=== PATIENT | female | born 1955 | race Caucasian/White ===

== ENCOUNTER 2017-03-01 14:00 | Inpatient (IN) | payer MEDICARE, OTHER ==
--- NOTE | ~2017-03-01 | PN ---
Unit #: [id number] #: [id number] Patient: CARIDAD RECINOS [id number] [facility] [address] [place] [address] [id number] MR#: [id number] NAME: CARIDAD RECINOS ROOM: P256 Age: 61 Sex: F Admission Date: 03/01/2017 : 1955 Attending Physician: Panchito Santacruz M.D. Admitting Physician: Panchito Santacruz M.D. Primary Care Physician: Maddie Dave PROGRESS NOTES DATE 03/03/2017 DISCUSSION Ms. Recinos is a 61-year-old white female who was seen today and chart was reviewed and case was discussed with the staff. She remains anxious, withdrawn, depressed and rather seclusive to herself. Meanwhile, she has been cooperative with treatment recommendations as she has been taking the medications and tolerating them fairly well with no reported side effects. MENTAL STATUS EXAMINATION Middle-aged white female who was casually dressed with fair personal hygiene, appears to be in no acute distress or discomfort. She was awake and alert on interaction with intact orientation. Her mood was anxious with congruent affect. She denies any suicidal or homicidal ideations. Her insight and judgement remains slightly impaired. TREATMENT PLAN 1. We will continue her on her current medications and treatment protocol. We will monitor her response to the medication and make further adjustments as needed. 2. We will continue to follow up. Dictated by... Maddie Herrera/darrell TD: 03/04/2017 02:49 JOB #: [id number] Unit #: [id number] #: [id number] Patient: CARIDAD RECINOS PROGRESS NOTES Page 1 of 1 X Panchito Santacruz MD X PROGRESS NOTE
--- NOTE | ~2017-03-01 | PA ---
Unit #: [id number] #: [id number] [facility] [id number] [facility] [address] [place] [address] [id number] I MR#: [id number] NAME: CARIDAD RECINOS ROOM: P256 Age: 61 Sex: F Admission Date: 03/01/2017 : 1955 Date of Assessment: 03/01/2017 Attending Physician: Panchito Santacruz M.D. Admitting Physician: Panchito Santacruz M.D. Primary Care Physician: Jennie Guy M.D. PSYCHIATRIC ASSESSMENT DATE OF SERVICE 03/01/2017. IDENTIFYING DATA Ms. Recinos is a 61-year-old , disabled, white female, who is known to me from previous multiple encounters and is a resident of [place], [place], and was self-referred to the hospital on a voluntary basis. CHIEF COMPLAINT "I'm off my medications and I'm suicidal." HISTORY OF PRESENT ILLNESS Ms. Recinos is a 61-year-old white female with history of mood disorder, who reports that she has been off her medication and has been decompensating and does report increasing depression, anxiety, feelings of hopelessness and helplessness, and suicidal ideation and reports that she has been in a lot of stress at home and that her daughter and her son-in-law along with their baby has moved in and the daughter is a drug addict and she has overdosed twice and has been on ventilator and that she has had some brain damage as well. She state "I don't want to be there anymore." The patient reports that she has been having thoughts of overdosing on pills and slitting her wrist or hanging herself "my head is not right, I know it is not." She reports increasing depression, anxiety, feelings of hopelessness and helplessness, and suicidal ideation and was seen to be danger to self and as such, recommendation for inpatient level of care for safety and stabilization was made. SUBSTANCE ABUSE HISTORY The patient has had history of [facility] and has been diagnosed and treated for bipolar disorder. Review of the medical records indicate currently she is on a combination of Effexor, lithium, and Seroquel, though has been out of her medications and as such, has been decompensating. PAST MEDICAL HISTORY The patient's medical history is significant for degenerative disk disease, COPD, spinal stenosis, history of hepatitis, dyslipidemia. ALLERGIES Codeine, Zofran, and Paxil. PERSONAL AND SOCIAL HISTORY Unit #: [id number] #: [id number] Patient: CARIDAD RECINOS A 61-year-old white female, who reports that she is single, disabled, and was living alone until her daughter and daughter's boyfriend and granddaughter moved in. MENTAL STATUS EXAMINATION Middle-aged white female, who was casually dressed with fair personal hygiene, appears to be in no acute distress or discomfort. She was awake and alert on interaction with intact orientation to time, place, and person. Her mood was anxious and depressed with a congruent affect. Her speech was slow and restricted in content. Her thought processes were disorganized with some looseness of associations and suicidal ideations. Her insight and judgment remain significantly impaired. DIAGNOSTIC IMPRESSION Psychiatric: Bipolar disorder, most recent episode depressed, recurrent, moderate, without psychotic features. Medical: Degenerative disk disease, chronic obstructive pulmonary disease, spinal stenosis, history of hepatitis C, dyslipidemia. Stressors: Moderate psychosocial stressors. TREATMENT PLAN 1. The patient has presented with history of mood disorder, and has been decompensating and will need inpatient hospitalization for safety and stabilization. We will start her back on her home medications. We will adjust the medications and monitor response. 2. Supportive therapy was provided to the patient. 3. Safe, structured, and nourishing environment will be provided. ESTIMATED LENGTH OF STAY 5 to 7 days. ABILITY TO HELP SELF Limited. WILLINGNESS TO HELP SELF The patient appears to be willing to help self. STRENGTHS 1. Communicative. 2. Cooperative. PROBLEMS 1. Chronic dysphoric symptoms. 2. Poor social support system. DISCHARGE CRITERIA This will be contingent upon the patient's ability to show resolution of her depression and anxiety and her ability to stay safe to herself, particularly after discharge from the hospital. Dictated by..Yun Santacruz M.D. RAMEZ/pratima TD: 03/02/2017 08:42 JOB #: [id number] Unit #: [id number] #: [id number] Patient: CARIDAD RECINOS PSYCHIATRIC ASSESSMENT Page 1 of 1 X Panchito Santacruz MD PSYCHIATRIC ASSESSMENT
--- NOTE | ~2017-03-01 | PN ---
Unit #: [id number] #: [id number] Patient: CARIDAD RECINOS [id number] [facility] [address] [place] [address] [id number] I MR#: [id number] NAME: CARIDAD RECINOS ROOM: P256 Age: 61 Sex: F Admission Date: 03/01/2017 : 1955 Attending Physician: Panchito Santacruz M.D. Admitting Physician: Panchito Santacruz M.D. Primary Care Physician: Maddie Dave PROGRESS NOTES DATE 03/03/2017 DISCUSSION Ms. Recinos is a 61-year-old white female who was seen today and chart was reviewed and case was discussed with the staff. She remains anxious, withdrawn, depressed and rather seclusive to herself. Meanwhile, she has been cooperative with treatment recommendations. She has been taking medications and tolerating them fairly well with no reported side effects. MENTAL STATUS EXAMINATION Middle-aged white female who was casually dressed with fair personal hygiene, appears to be in no acute distress or discomfort. She was awake and alert on interaction with intact orientation. Her mood was anxious with congruent affect. She denies any suicidal or homicidal ideations. Her insight and judgement remains slightly impaired. TREATMENT PLAN 1. We will continue her on her current medications and treatment protocol. We will monitor her response to the medication and make further adjustments as needed. 2. We will continue to follow up. Dictated by... Maddie Herrera/darrell TD: 03/04/2017 02:47 JOB #: [id number] Unit #: [id number] #: [id number] Patient: CARIDAD RECINOS PROGRESS NOTES Page 1 of 1 X Panchito Santacruz MD X PROGRESS NOTE
--- NOTE | ~2017-03-01 | HP ---
Unit #: [id number] #: [id number] Patient: CARIDAD RECINOS [id number] [place] [address] [id number] MR#: [id number] NAME: CARIDAD RECINOS ROOM: P256 Age: 61 Sex: F Admission Date: 03/01/2017 : 1955 Attending Physician: Panchito Santacruz M.D. Admitting Physician: Panchito Santacruz M.D. Primary Care Physician: Jennie Guy M.D. HISTORY AND PHYSICAL HISTORY OF PRESENT ILLNESS The patient is a 61-year-old female admitted to [address] [place] [address] on 03/01/2017 for suicidal ideations. PAST MEDICAL HISTORY 1. Degenerative disc disease 2. COPD 3. Spinal stenosis 4. Hyperlipidemia 5. Colitis 6. Nicotine dependence PAST SURGICAL HISTORY 1. Bilateral ankle 2. Bilateral tubal ligations 3. Tonsillectomy 4. Breast biopsy SOCIAL HISTORY She is disabled. She lives with her daughter. She smokes one pack of cigarettes daily. Denies alcohol and drug use. FAMILY MEDICAL HISTORY Noncontributory. ALLERGIES Zofran, Paxil, codeine and betadine. CURRENT MEDICATIONS 1. Effexor 2. Bodega 3. Seroquel 4. Neurontin 5. Voltaren 6. Symbicort 7. Proventil 8. Phenergan 9. Flagyl 10. Cipro 11. Harper REVIEW OF SYSTEMS CONSTITUTIONAL: No fever or chills. Unit #: [id number] #: [id number] Patient: CARIDAD RECINOS HEENT: Denies any sore throat, ear pain or runny nose. CARDIOVASCULAR: Denies chest pain, irregular heart rhythm or palpitations. CHEST: Denies shortness of breath or cough. No hemoptysis. GASTROINTESTINAL: Denies nausea, vomiting, diarrhea or chronic constipation. ENDOCRINE: Denies history of increased thirst or urination. No recent significant weight loss or gain. GENITOURINARY: Denies dysuria, frequency, or hematuria. SKIN: Denies any rashes. HEMATOLOGIC: Denies history of increased bleeding or bruising. MUSCULOSKELETAL: Denies any hot, swollen joints. No generalized muscle pain. NEUROLOGIC: Denies problems with vision or speech. No frequent, severe headaches. No numbness, tingling or weakness in any extremities. Denies loss of bladder or bowel control. PHYSICAL EXAM GENERAL: She is awake, alert and oriented in no acute distress. VITAL SIGNS: Temperature 98.1, heart rate 88, respiration 16, blood pressure 122/74. HEIGHT: 5'9". WEIGHT: 168 pounds. SKIN: Warm and dry without rash or lesion. HEENT: Normocephalic. TMs not viewed. Oral and nasal passages clear. Conjunctivae clear. PERRLA. EOMs intact. NECK: Supple without lymphadenopathy or thyromegaly. HEART: Regular rate and rhythm without murmur. LUNGS: Clear. ABDOMEN: Soft, nontender. : Not done. EXTREMITIES: No evidence of cyanosis, clubbing or edema. Moves all without focal deficit. NEUROLOGICAL: Grossly within normal limits. Cranial Nerves: II: Visual neumann are intact. III, IV AND : Extraocular movements are intact. Pupils are equal, round and reactive to light. V: Facial sensation is grossly normal. VII: Facial movements and expression are normal. VIII: Auditory acuity grossly intact. IX, X: Uvula is midline. Phonation is normal. XI: Patient shrugs shoulders and turns head normally. XII: Tongue protrudes in the midline. Sensory and Motor Function: Sensory and motor sensation is grossly normal. Motor: moves all extremities well. IMPRESSION 1. Psychiatric admission. 2. Degenerative disc disease. 3. Chronic obstructive pulmonary disease. 4. Spinal stenosis. 5. Hyperlipidemia. 6. Colitis. 7. Nicotine dependence. RECOMMENDATIONS Psychiatric per psychiatrist. MEDICAL: No contraindication to participate in facility activities. Unit #: [id number] #: [id number] Patient: CARIDAD RECINOS MEDICAL PROGNOSIS Fair. MEDICAL CONDITION Stable. Dictated by... Arcadio Dixon/darrell TD: 03/01/2017 23:41 JOB #: [id number] HISTORY AND PHYSICAL Page 1 of 1 X ZENOBIA ANN APRN X HISTORY AND PHYSICAL
--- NOTE | ~2017-03-01 | DS ---
Unit #: [id number] #: [id number] Patient: CARIDAD RECINOS [id number] [facility] [address] [place] [address] [id number] I MR#: [id number] NAME: CARIDAD RECINOS ROOM: P256 Age: 61 Sex: F Admission Date: 03/01/2017 : 1955 Discharge Date: 03/05/2017 Attending Physician: Panchito Santacruz M.D. Primary Care Physician: Jennie Guy M.D. DISCHARGE SUMMARY IDENTIFYING DATA Ms. Recinos is a 61-year-old single, disabled white female, who is known to us from previous encounter, and was self-referred to the hospital on a voluntary basis. DISCHARGE DIAGNOSES Psychiatric: Bipolar disorder, most recent episode depressed, recurrent, moderate, without psychotic features. Medical: Chronic obstructive pulmonary disease, degenerative disk disease, spinal stenosis, history of hepatitis C, dyslipidemia. Stressors: Moderate psychosocial stressors. HISTORY OF PRESENT ILLNESS Please see initial psychiatric evaluation for details. PAST PSYCHIATRIC HISTORY Please see initial psychiatric evaluation for details. PAST MEDICAL HISTORY Please see initial psychiatric evaluation for details. HOSPITAL COURSE The patient was [facility] and was oriented to the hospital environment. Routine p.r.n. medications were initiated, and she was started back on her home medications including her Seroquel and lithium and was closely monitored. She was taking the medications regularly and was tolerating them fairly well and was able to show a decent and therapeutic response with improvement in depression and anxiety and was willing to continue treatment on an outpatient basis and was denying any further suicidal or homicidal ideations and as such, it was decided that she will be discharged home and will continue treatment on an outpatient basis. DISCHARGE MEDICATIONS Effexor XR 150 mg in the morning for depression, Seroquel 400 mg at bedtime for bipolar, and lithium 300 mg b.i.d. for bipolar. DISCHARGE CONDITION Stable. PROGNOSIS Fair. Unit #: [id number] #: [id number] Patient: CARIDAD RECINOS Dictated by... Panchito Santacruz M.D. IAA/modl TD: 03/05/2017 23:42 JOB #: [id number] DISCHARGE SUMMARY Page 1 of 1 X Panchito Santacruz MD DISCHARGE SUMMARY
--- NOTE | ~2017-03-01 | PN ---
Unit #: [id number] #: [id number] Patient: CARIDAD RECINOS [id number] [facility] [address] [place] [address] [id number] I MR#: [id number] NAME: CARIDAD RECINOS ROOM: P256 Age: 61 Sex: F Admission Date: 03/01/2017 : 1955 Attending Physician: Panchito Santacruz M.D. Admitting Physician: Panchito Santacruz M.D. Primary Care Physician: Maddie Dave PROGRESS NOTES DATE OF SERVICE: 03/02/2017 SUBJECTIVE Ms. Recinos is a 61-year-old white female, who was seen today and chart was reviewed, and case was discussed with the staff. She has been anxious, withdrawn, and rather seclusive to herself. Meanwhile, she has been cooperative with treatment recommendations and has been taking the medications and tolerating them fairly well with no reported side effects. MENTAL STATUS EXAMINATION Middle-aged white female, who was casually dressed with fair personal hygiene, and appears to be in no acute distress or discomfort. She was awake and alert on interaction with intact orientation. Her mood was anxious with a congruent affect. She denies any suicidal or homicidal ideations, and also denies any auditory or visual hallucinations. Her insight and judgment slightly impaired. TREATMENT PLAN 1. We will continue her on her current medications and treatment protocol. We will monitor her response to the medications and make further adjustments as needed. 2. We will continue to follow up. Dictated by... Maddie Herrera/pratima TD: 03/02/2017 13:01 JOB #: [id number] [facility] PROGRESS NOTES Page 1 of 1 X Panchito Santacruz MD PROGRESS NOTE
--- NOTE | ~2017-03-01 | PN ---
Unit #: [id number] #: [id number] Patient: CARIDAD RECINOS [id number] [facility] [address] [place] [address] [id number] I MR#: [id number] NAME: CARIDAD RECINOS ROOM: P256 Age: 61 Sex: F Admission Date: 03/01/2017 : 1955 Attending Physician: Panchito Santacruz M.D. Admitting Physician: Panchito Santacruz M.D. Primary Care Physician: Maddie Dave PROGRESS NOTES DATE March 04, 2017 DISCUSSION Ms. Recinos is a 61-year-old white female, who was seen today and chart was reviewed and the case was discussed with the staff. She reports doing fairly well and has been calm and cooperative with the treatment recommendations and she has been taking the medications and tolerating them fairly well with no reported side effects. MENTAL STATUS EXAMINATION Middle-aged white female, who was casually dressed with fair personal hygiene and appears to be in no acute distress or discomfort. The patient was awake and alert on interaction with intact orientation. Her mood was anxious with a congruent affect. The patient denies any suicidal or homicidal ideations. Her insight and judgment remain slightly impaired. TREATMENT PLAN 1. We will continue her on her current medications and treatment protocol, and will monitor her response to the medications, and make further adjustments as needed. 2. We will continue to followup. Dictated by... Maddie Herrera/hilda TD: 03/04/2017 12:19 JOB #: [id number] Unit #: [id number] #: [id number] Patient: CARIDAD RECINOS PROGRESS NOTES Page 1 of 1 X Panchito Santacruz MD X PROGRESS NOTE
[~2017-03-01 14:00] MED LIST: BENTYL10 MG DOB; BENTYL10 MG PO; CIPRO PO; FLAGYL PO; FLEXERIL10 MG PO; IBUPROFEN25 GM; MEDROL DOSEPAK4 MG PO; MS CONTIN15 M1 PO; NO MEDICATIONS; NORFLEX100 MG PO; PEPCID AC20 M2 PO; PHENERGAN SUPP25 MG PR; PHENERGAN25 MG PO; PRILOSEC PO; TRAMADOL HCL50 M1 PO; VICODIN PO; VOLTAREN75 MG PO; ZANTAC150 MG PO; ZOFRAN PO
[2017-03-02 09:48] LABS: BASOPHIL% 0.4 % (0-2.5); EOSINOPHIL# 0.5 X10e3 (0-0.7); EOSINOPHIL% 6.3 % (0.0-7.0); HEMATOCRIT 36.1 % (35.0-45.0); HEMOGLOBIN 11.5 gm/dL (12.0-16.0); LYMPHOCYTE# 3.4 X10e3 (1.0-3.5); LYMPHOCYTE% 43.4 % (17.0-45.0); MEAN CELL VOLUME 95.5 FL (83-96); MEAN CORPUSCULAR HEMOGLOBIN 30.6 PG (28-34); MEAN PLATELET VOLUME 7.4 FL (6.5-11.5); MONOCYTE# 0.6 X10e3 (0-1.0); MONOCYTE% 7.6 % (3.0-12.0); NEUTROPHIL# 3.3 X10e3 (1.5-7.1); NEUTROPHIL% 42.3 % (40-75); PLATELET COUNT 373 X10e3 (140-420); RED BLOOD COUNT 3.78 X10e (3.90-5.30); RED CELL DISTRIBUTION WIDTH 17.1 % (11.0-15.5); WHITE BLOOD COUNT 7.9 X10e3 (4.0-10.5)
[2017-03-02 09:54] LABS: DIFF IND NO
[2017-03-02 10:28] LABS: ALBUMIN SERUM 3.7 g/dL (3.5-5.0); BILIRUBIN,TOTAL 0.3 mg/dL (0.2-2.0); BUN/CREATININE RATIO 6.25; CREATININE SERUM 0.8 mg/dL (0.6-1.4); GLOM FILT RATE Estimated 80.8 mL/min (>60); POTASSIUM 3.9 mmol/L (3.5-5.1); PROTEIN TOTAL SERUM 6.8 g/dL (6.0-8.3)
[2017-03-04 10:03] LABS: URINE APPEARANCE CLEAR; URINE BILIRUBIN NEG (NEG); URINE BLOOD NEG (NEG); URINE COLOR YELLOW; URINE GLUCOSE NEG (NEG); URINE KETONE NEG (NEG); URINE LEUKOCYTE ESTERASE 2+ (NEG); URINE NITRATE NEG (NEG); URINE PH 7.5 (5-8); URINE PROTEIN NEG (NEG); URINE SPECIFIC GRAVITY 1.006 (1.003-1.035); URINE UROBILINOGEN 0.2 MG/DL (NEG)
[2017-03-04 10:12] LABS: URINE BACTERIA AUWI 2+ (NEGATIVE); URINE SQUAMOUS EPITHELIAL CELL MOD /[HPF]
[2017-03-04 11:18] LABS: AMPHETAMINE NEG (NEG); BARBITURATES NEG (NEG); BENZODIAZEPINES NEG (NEG); COCAINE NEG (NEG); MARIJUANA NEG (NEG); OPIATES POS (NEG); TRICYCLIC ANTIDEPRESSANTS NEG (NEG); U METHADONE NEG (NEG)
== END 2017-03-05 09:30 | disposition home or self-care (01) | DRG 885 ==
LOC: P2L 14:17
PROVIDERS: Psychiatry & Neurology Psychiatry
DX: F31.32 Bipolar disorder, current episode depressed, moderate (principal); J44.9 Chronic obstructive pulmonary disease, unspecified; M48.00 Spinal stenosis, site unspecified; Z86.19 Personal history of other infectious and parasitic diseases; E78.5 Hyperlipidemia, unspecified; F17.210 Nicotine dependence, cigarettes, uncomplicated; Z98.51 Tubal ligation status
CPT/HCPCS: 80053; 80178; 80307; 81003; 85025